=== PATIENT | female | born 1990 | race Two or more races ===

== ENCOUNTER 2019-07-11 11:15 | Observation (INO) | payer MEDICAID, OTHER ==
[2019-07-11 14:07] LABS: Amphetamine Screen, Urine NEGATIVE (NEGATIVE); Barbiturate Scree,Urine NEGATIVE (NEGATIVE); Benzodiazephine Screen, Urine NEGATIVE (NEGATIVE); Cannabinoid Screen, Urine POSITIVE (NEGATIVE); Cocaine Screen, Urine NEGATIVE (NEGATIVE); Opiate Scree,Urine NEGATIVE (NEGATIVE); Phencyclidine Screen, Urine NEGATIVE (NEGATIVE)
== END 2019-07-11 14:27 | disposition home or self-care (01) | DRG 566 ==
LOC: LDRP 11:15
PROVIDERS: ADMIT Specialist; ATTEND Specialist
DX: O62.9 Abnormality of forces of labor, unspecified (principal); Z3A.38 38 weeks gestation of pregnancy
CPT/HCPCS: 59025; 76805; 80307; 81002; G0378